=== PATIENT | male | born 1955 | race Caucasian/White ===

== ENCOUNTER → 2018-01-06 | Outpatient (CLI) | payer MEDICARE ==
--- NOTE | 2018-01-06 10:10 | CTL ---
EXAMINATION TYPE: CT Low Dose Lung DATE OF EXAM ORDERED: 01/06/2018 HISTORY: Tobacco abuse. Lung cancer screening CT DLP: 82.[address] CTDI: 2.3 mGy Automated exposure control for dose reduction was used. SCREENING VISIT: Initial COMPARISON: None TECHNIQUE: Low dose computed tomography scan was performed through the chest at 1 mm thick sections a nd reconstructed images in the coronal plane at [address] DIAGNOSTIC QUALITY: Satisfactory FINDINGS: LUNG NODULES: There is a solid right basilar 5 mm pulmonary nodule seen on axial series 4 image 238 and coronal ser ies 10 image 40. There is a solid left basilar 3 mm pulmonary nodule in series 4 image 215 versus elongated ectatic pu lmonary vessel. This extends to the interlobar fissure. There is a triangular-shaped intrafissural lymph node on coronal series 10 image 25. LUNGS: COPD: Severity: Mild Fibrosis: Severity: None Lymph nodes: No adenopathy Other findings: None RIGHT PLEURAL SPACE: Effusion: None Calcification: None Thickening: None Pneumothorax: None LEFT PLEURAL SPACE: Effusion: None Calcification: None Thickening: None Pneumothorax: None HEART: Heart Size: Normal Coronary calcification: Mild Pericardial effusion: None OTHER FINDINGS: Upper abdomen: There is a fluid attenuated 2.1 cm right hepatic cyst. This is cyst either exophytic o r there is an adjacent right upper pole renal cyst that is exophytic. Additionally there is a too sma ll to accurately characterize 6 mm hypoattenuated hepatic lesion on series 3 image 269. Bony thorax: Minimal multilevel degenerative disc disease of the thoracic spine. Supraclavicular region: Visualized portions are grossly unremarkable. Other: Very mild symmetric retroareolar probable gynecomastia is seen. IMPRESSION: 1. Pulmonary nodules measuring up to 5 mm. This corresponds to LUNG RADS 2-nodules with a very low li kelihood of becoming a clinically active cancer due to size. However consensus criteria recommend rep eat annual screening with low dose CT in 12 months to assess for interval growth. 2. Mild background centrilobular pulmonary emphysema. FOLLOW UP CT CHEST RECOMMENDATION: Annual low dose CT is recommended. CT LUNG RAD: Lung-Rad 2 Benign Appearance or Behavior
== END | disposition home or self-care (01) ==
LOC: RADCTMAIN 08:55
PROVIDERS: ATTEND Family Medicine
DX: Z12.2 Encounter for screening for malignant neoplasm of respiratory organs (principal); R91.8 Other nonspecific abnormal finding of lung field; J43.2 Centrilobular emphysema; F17.210 Nicotine dependence, cigarettes, uncomplicated

== ENCOUNTER → 2019-01-10 | Outpatient (CLI) | payer MEDICARE ==
--- NOTE | 2019-01-10 12:21 | CTL ---
EXAMINATION TYPE: CT Low Dose Lung DATE OF EXAM ORDERED: 01/10/2019 HISTORY: Personal history tobacco use. Lung cancer screening CT DLP: [address] CTDI: 1.95 mGy Automated exposure control for dose reduction was used. SCREENING VISIT: 2 COMPARISON: Prior CT 01/06/2018 TECHNIQUE: Low dose computed tomography scan was performed through the chest at 1 mm thick sections a nd reconstructed images in the coronal plane at [address] DIAGNOSTIC QUALITY: Satisfactory FINDINGS: The findings are stable. Nodular density right lower lobe is unchanged. Lesion along the fissure the region of the lingula is also stable and benign. Centrilobular emphysematous changes are present. The re is no pleural or pericardial effusion present. HEART: Heart Size: Stable Coronary calcification: Interval Pericardial effusion: None OTHER FINDINGS: Upper abdomen: Stable low dense focus within the posterior right lobe of the liver. There is a small hiatal hernia. Bony thorax: Unchanged Supraclavicular region: No significant abnormality Other: IMPRESSION: Stable exam, benign FOLLOW UP CT CHEST RECOMMENDATION: [address] LUNG RAD: 2
== END | disposition home or self-care (01) ==
LOC: RADCTMAIN 11:11
PROVIDERS: ATTEND Family Medicine
DX: Z12.2 Encounter for screening for malignant neoplasm of respiratory organs (principal); Z87.891 Personal history of nicotine dependence

== ENCOUNTER → 2020-02-20 | Outpatient (CLI) | payer MEDICARE ==
--- NOTE | 2020-02-20 10:47 | CTL ---
EXAMINATION TYPE: CT Low Dose Lung DATE OF EXAM ORDERED: 02/20/2020 HISTORY: Personal history tobacco use. Lung cancer screening CT DLP: [address] CTDI: 2.03 mGy Automated exposure control for dose reduction was used. SCREENING VISIT: Subsequent COMPARISON: 01/10/2019 TECHNIQUE: Low dose computed tomography scan was performed through the chest at 1 mm thick sections a nd reconstructed images in the coronal plane at [address] DIAGNOSTIC QUALITY: Satisfactory FINDINGS: LUNG NODULES: Present, detailed below: There is a 0.2 cm calcification periphery of the anterior left upper lung field. Series 5 image 71. T his was present previously. 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 . LUNGS: COPD: Severity: None Fibrosis: Severity: None Lymph nodes: None Other findings: None RIGHT PLEURAL SPACE: Effusion: None Calcification: None Thickening: None Pneumothorax: None LEFT PLEURAL SPACE: Effusion: None Calcification: None Thickening: None Pneumothorax: None HEART: Heart Size: Normal Coronary calcification: Minimal Pericardial effusion: None OTHER FINDINGS: Upper abdomen: There is a 1.1 cm hypodense dense area within the posterior medial right mid lobe live r. Punctate areas of density may be within this structure. This is a non simple cyst or solid lesion but was present previously and is stable. Bony thorax: Unremarkable Supraclavicular region: Unremarkable Other: Ascending thoracic aorta at the level the main pulmonary artery measures 3.3 cm. The main pul monary artery at the bifurcation measures 2.1 cm. IMPRESSION: Benign findings FOLLOW UP CT CHEST RECOMMENDATION: Follow-up low-dose CT screening chest [address] LUNG RAD: 2
== END | disposition home or self-care (01) ==
LOC: RADCTMAIN 08:00
PROVIDERS: ATTEND Family Medicine
DX: Z12.2 Encounter for screening for malignant neoplasm of respiratory organs (principal); F17.210 Nicotine dependence, cigarettes, uncomplicated

== ENCOUNTER → 2023-06-28 | Outpatient (CLI) | payer MEDICARE ==
--- NOTE | 2023-06-28 09:31 | CTL ---
EXAMINATION TYPE: CT Low Dose Lung DATE OF EXAM: 06/28/2023 9:15 AM CLINICAL INDICATION:Male, 67 years old with history of Z12.2 Lung cancer screening; personal hx of ni cotine dependence, current smoker, 1ppd X 46years , history of tobacco use. COMPARISON: Multiple studies most recently 02/20/2020. TECHNIQUE: Multiple axial non-contrast scans were obtained from approximately the lung apices through the upper abdomen. Coronal and sagittal reformatted images were obtained. Low dose technique was uti lized. CT DLP: 105.8 mGycm, Automated exposure control for dose reduction was used. CT Contrast: Contrast used: None Oral contrast used: None FINDINGS: ======== Lack of intravenous contrast and low dose technique limits the evaluation of the vascular and soft ti ssue structures. LUNGS: No evidence of pulmonary fibrosis. No evidence of focal consolidation, pneumothorax or pleural effusion. Mild to moderate centrilobular emphysema changes are seen throughout the lungs. Nodules: RUL: None. RML: None. RLL: 7 mm series 3 image 267. HOMER: Calcified granuloma image 90 LLL: 3 mm residual 5. AIRWAY: Patent and unremarkable. HEART: Size within normal limits. Scattered mild coronary artery atherosclerosis. MEDIASTINUM: No gross evidence of adenopathy. VASCULATURE: No aortic aneurysm. MUSCULOSKELETAL: No acute osseous abnormalities SOFT TISSUES/LYMPH NODES: Unremarkable. LOWER NECK: No significant findings. UPPER ABDOMEN: Fat stranding changes around the left upper quadrant sigmoid colon/descending colon. T his is partially in the [id number]. Few scattered colonic diverticula present. Right hepatic lobe simple appearing cyst. Small hiatal hernia. IMPRESSION: 1. Left upper quadrant inflammation changes around the colon correlate for colitis/diverticulitis. C onsider complete evaluation of the abdomen and pelvis with CT with IV contrast. 2. Stable pulmonary nodules. 3. Mild to moderate emphysema changes. CT LUNG RAD AND CT CHEST RECOMMENDATION: Lung-Rad 2 Benign Appearance or Behavior: Continue annual sc reening with LDCT in 12 months. S Modifier (other clinically significant findings): None Recommend smoking cessation (if current smoker), or continuation of smoking cessation (if prior smoke r). Annual screening for lung cancer with low-dose computed tomography is recommended in adults ages 55 to 77 years who have a 30 pack-year smoking history and currently smoke or have quit within the pa st 15 years. Screening should be discontinued once a person has not smoked for 15 years or develops a health problem that substantially limits life expectancy or the ability or willingness to have curat j carlos lung surgery. Lung rads 2021 [email or web address]
== END | disposition home or self-care (01) ==
LOC: RADCTMAIN 08:58
PROVIDERS: ATTEND Family Medicine
DX: Z12.2 Encounter for screening for malignant neoplasm of respiratory organs (principal); F17.210 Nicotine dependence, cigarettes, uncomplicated; J43.2 Centrilobular emphysema; R91.8 Other nonspecific abnormal finding of lung field; K52.89 Other specified noninfective gastroenteritis and colitis
CPT/HCPCS: 71271

== ENCOUNTER 2023-07-21 10:30 | Day surgery (SDC) | payer MEDICARE ==
[2023-07-19 14:09] VITALS: BMI 27.9
[~2023-07-21 10:30] MED LIST: LIDOCAINE 1% (10MG/ML) FOR IV START INTRADERMA PRN
[2023-07-21] MEDS: LACTATED RINGERS 1,000 ML IV SCH (11:05)
[2023-07-21] MEDS: NA PHOS,M-B/NA PHOS,DI-BA 133 ML ENEMA RECTAL ONE (11:07)
[2023-07-21 11:14] VITALS: TEMP 97.3
[2023-07-21] MEDS ORDERED: PROPOFOL 10 MG/ML 20 ML VIAL IV ONE (12:11)
--- NOTE | 2023-07-21 12:33 | P.PCN ---
Date of Procedure: 07/21/23 Procedure(s) Performed: BRIEF HISTORY: Patient is a 67-year-old pleasant white male scheduled for an elective colonoscopy as a part of evaluation of prior history of colon polyps and family history of colon cancer. His father was diagnosed with colon cancer at age 70. PROCEDURE PERFORMED: Colonoscopy with snare polypectomy. PREOPERATIVE DIAGNOSIS: History of colon polyps and family history of colon cancer. IV sedation per Anesthesia. PROCEDURE: After informed consent was obtained, the patient, was brought into the endoscopy unit. IV sedation was administered by Anesthesia under continuous monitoring. Digital rectal examination was normal. Initially the Olympus CF-160 flexible video colonoscope was then inserted in the rectum, gradually advanced into the cecum without any difficulty. Careful examination was performed as the scope was gradually being withdrawn. Ileocecal valve and the appendiceal orifice were visualized and appeared normal. Prep was excellent. Mucosa of the cecum appeared normal. In the ascending colon there was a 1 segment of polyp removed by snare polypectomy. In the hepatic flexure there was an 8 mm polyp by snare polypectomy. In the transverse colon there was a 5 mm polyp removed by snare polypectomy. Rest of the, ascending colon, transverse colon, descending colon, sigmoid colon, and rectum appeared normal. In the sigmoid colon there was a 5 limited polyp removed by snare polypectomy. Retroflexion was performed in the rectum and no lesions were seen. The patient tolerated the procedure well. IMPRESSION: 1 cm ascending colon polyp status post snare polypectomy 8 mm hepatic flexure polyp status post polypectomy 5 mm transverse colon polyp status post polypectomy 5 mm sigmoid polyp status post polypectomy RECOMMENDATIONS: Findings of this examination were discussed with the patient as well as his family. He was advised to follow up with the biopsy results. If the biopsy reveals adenoma he can have a repeat colonoscopy in 3 years.
[2023-07-21 13:14] VITALS: BP 111/71; PULSE 67; RESP 16
== END 2023-07-21 13:11 | disposition home or self-care (01) ==
LOC: ORWHC2ENDO 10:30
PROVIDERS: ATTEND Internal Medicine Gastroenterology
DX: Z12.11 Encounter for screening for malignant neoplasm of colon (principal); D12.2 Benign neoplasm of ascending colon; I10 Essential (primary) hypertension; J44.9 Chronic obstructive pulmonary disease, unspecified; F17.210 Nicotine dependence, cigarettes, uncomplicated; F32.A Depression, unspecified; Z80.0 Family history of malignant neoplasm of digestive organs; Z86.010 Personal history of colon polyps; Z79.899 Other long term (current) drug therapy
CPT/HCPCS: 88305; 45385; J2704

== ENCOUNTER → 2024-08-29 | Outpatient (CLI) | payer MEDICARE ==
--- NOTE | 2024-08-29 09:05 | CTL ---
EXAMINATION TYPE: CT Low Dose Lung DATE OF EXAM: 08/29/2024 8:39 AM COMPARISON: 06/28/2023 CLINICAL INDICATION: Male, 68 years old with history of Z12.2 SCREENING F17.210 CURRENT SMOKER; SMOKE R, history of tobacco use. TECHNIQUE: Multiple axial non-contrast scans were obtained from approximately the lung apices through the upper abdomen. Coronal and sagittal reformatted images were obtained. Low dose technique was uti lized. MIP were created on a separate workstation and submitted for review. CT DLP: 97.6 mGycm, Automated exposure control for dose reduction was used. CT Contrast: Contrast used: None Oral contrast used: None FINDINGS: Lack of intravenous contrast and low dose technique limits the evaluation of the vascular and soft ti ssue structures. LUNGS: No evidence of pulmonary fibrosis. No evidence of focal consolidation, pneumothorax or pleural effusion. Centrilobular emphysema changes. Nodules: RUL: None. RML: None. RLL: 6 mm series 5 image 52., Stable given differences in technique HOMER: 2 mm series 3 image 100, 2 mm image 105 possibly calcified other calcified nodules suggested . LLL: 3 mm image 248 series 3 Brigette granuloma left lung base. AIRWAY: Patent and unremarkable. HEART: Size within normal limits. Mild coronary artery calcifications present. MEDIASTINUM: No gross evidence of adenopathy. VASCULATURE: No aortic aneurysm. MUSCULOSKELETAL: No acute osseous abnormalities SOFT TISSUES/LYMPH NODES: Unremarkable. LOWER NECK: No significant findings. UPPER ABDOMEN: No significant findings. IMPRESSION: 1. No clinically significant pulmonary nodules. Scalloped granulomas disease. 2. Moderate emphysema. CT LUNG RAD AND CT CHEST RECOMMENDATION: Lung-Rad 2 Benign Appearance or Behavior: Continue annual sc reening with LDCT in 12 months. S Modifier (other clinically significant findings): None Recommend smoking cessation (if current smoker), or continuation of smoking cessation (if prior smoke r). Annual screening for lung cancer with low-dose computed tomography is recommended in adults ages 55 to 77 years who have a 30 pack-year smoking history and currently smoke or have quit within the pa st 15 years. Screening should be discontinued once a person has not smoked for 15 years or develops a health problem that substantially limits life expectancy or the ability or willingness to have curat j carlos lung surgery. Lung rads 2021 [email or web address] [facility], , 08/29/2024 9:03 AM
== END | disposition home or self-care (01) ==
LOC: RADCTMAIN 08:20
PROVIDERS: ATTEND Family Medicine
DX: Z12.2 Encounter for screening for malignant neoplasm of respiratory organs (principal); J43.2 Centrilobular emphysema; F17.210 Nicotine dependence, cigarettes, uncomplicated; J84.10 Pulmonary fibrosis, unspecified
CPT/HCPCS: 71271